=== PATIENT | female | born 1975 | race Caucasian/White ===

== ENCOUNTER 2021-09-23 18:58 | Emergency (ER) | payer OTHER ==
[~2021-09-23] VITALS: Ht 160 cm; Wt 70.8 kg
== END 2021-09-23 22:29 | disposition home or self-care (01) ==
LOC: ER 18:58
DX: S60.111A Contusion of right thumb with damage to nail, initial encounter (principal); W23.0XXA Caught, crushed, jammed, or pinched between moving objects, initial encounter; Y93.9 Activity, unspecified; Y92.9 Unspecified place or not applicable; Y99.9 Unspecified external cause status